=== PATIENT | female | born 1985 | race Two or more races ===

== ENCOUNTER → 2019-10-23 | Emergency (ER) | payer BC, OTHER ==
[~2019-10-23] VITALS: Ht 157.5 cm; Wt 79.4 kg
[~2019-10-23] MED LIST: PROMETHAZINE HCL 25 MG/ML 1ML IV ONE; SODIUM CHLORIDE 0.9% 1,000 ML IVB ONE
[2019-10-23 11:59] LABS: Basophils # (auto) 0.1 10 ^3/uL (0-0.2); Eosinophils # (auto) 0.1 10 ^3/uL (0-0.8); Hemoglobin 10.9 g/dL (12.2-16.2); Lymphocytes # (auto) 1.8 10 ^3/uL (0.4-5.4); Mean Corpuscular Hemoglobin 22.9 pg (28.0-32.0); Monocytes # (auto) 0.7 10 ^3/uL (0-1.3); Red Blood Cells 4.77 10^6/uL (4.0-5.20); White Blood Cell 11.5 10^3/uL (4.4-10.8)
[2019-10-23 12:01] LABS: Basophils % (auto) 0.6 % (0.0-2.0); Hematocrit 35.4 % (36.0-46.0); Lymphocytes % (auto) 15.5 % (10.0-50.0); Mean Corpuscular Hgb Conc. 30.9 g/dL (32.0-36.0); Mean Corpuscular Volume 74.3 fL (80.0-100.0); Monocytes % (auto) 5.8 % (0.0-12.0); Neutrophils # (auto) 8.9 10 ^3/uL (1.6-8.6); Neutrophils % (auto) 77.1 % (37.0-80.0); Platelet Count (auto) 357 10^3/uL (140-450); Red Cell Distribution Width 17.6 % (11.8-14.3)
[2019-10-23 12:22] LABS: Albumin 3.6 g/dL (3.4-5.0); Calcium 8.5 mg/dL (8.5-10.1); Potassium 3.8 mmol/L (3.5-5.1)
[2019-10-23 12:27] LABS: BUN/Creatinine Ratio 12.3; Bilirubin, Total 0.2 mg/dL (0.2-1.0); Total Protein 8.5 g/dL (6.4-8.2)
[2019-10-23 12:53] LABS: Magnesium 2.3 mg/dL (1.6-2.6)
[2019-10-23 12:58] LABS: INR 0.99 (0.9-1.15); Partial Thromboplastin Time 24.6 sec (23.64-32.05)
[2019-10-23 13:16] LABS: Urine Amorphous Crystal MOD /hpf (None Seen); Urine Bacteria FEW /hpf (None Seen); Urine Blood Negative /uL (Negative); Urine Mucus FEW (None Seen); Urine Specific Gravity 1.016 (1.001-1.035); Urine WBC 11 /hpf (0 - 5)
[2019-10-23 13:26] LABS: Alcohol, Urine < 3.0 mg/dL (0-10); Amphetamine Screen, Urine NEGATIVE (NEGATIVE); Barbiturate Scree,Urine NEGATIVE (NEGATIVE); Benzodiazephine Screen, Urine NEGATIVE (NEGATIVE); Cannabinoid Screen, Urine NEGATIVE (NEGATIVE); Cocaine Screen, Urine NEGATIVE (NEGATIVE); Opiate Scree,Urine NEGATIVE (NEGATIVE); Phencyclidine Screen, Urine NEGATIVE (NEGATIVE)
[2019-10-23 14:05] VITALS: BP 102/56
== END | disposition home or self-care (01) ==
LOC: ER 11:20
DX: D50.9 Iron deficiency anemia, unspecified (principal); N39.0 Urinary tract infection, site not specified; R55 Syncope and collapse
CPT/HCPCS: 36415; 70450; 71046; 80053; 80307; 81001; 81025; 83735; 84484; 85025; 85610; 85730; 93005; 96361; 96374; 99285; J2550; J7030